=== PATIENT | female | born 1950 | race Caucasian/White ===

== ENCOUNTER 2016-11-14 09:46 | Emergency (ER) | payer OTHER, MEDICAID ==
[~2016-11-14] VITALS: Ht 152.4 cm; Wt 54.4 kg
[2016-11-14 12:34] VITALS: BP 134/42
== END 2016-11-14 12:50 | disposition home or self-care (01) ==
LOC: ED 09:46
DX: S16.1XXA Strain of muscle, fascia and tendon at neck level, initial encounter (principal); S61.401A Unspecified open wound of right hand, initial encounter; S20.212A Contusion of left front wall of thorax, initial encounter; R51 Headache; J45.909 Unspecified asthma, uncomplicated; M81.0 Age-related osteoporosis without current pathological fracture; F41.9 Anxiety disorder, unspecified; M79.7 Fibromyalgia; Z88.1 Allergy status to other antibiotic agents; Z88.5 Allergy status to narcotic agent; Z88.6 Allergy status to analgesic agent; Z88.8 Allergy status to other drugs, medicaments and biological substances; Z98.890 Other specified postprocedural states; V89.2XXA Person injured in unspecified motor-vehicle accident, traffic, initial encounter; Y93.89 Activity, other specified; Y92.89 Other specified places as the place of occurrence of the external cause; Y99.8 Other external cause status
CPT/HCPCS: 90715; J2270; Q0162

== ENCOUNTER 2017-05-16 08:57 | Emergency (ER) | payer OTHER ==
[~2017-05-16] VITALS: Ht 162.6 cm; Wt 59.4 kg
[2017-05-16 10:41] VITALS: BP 121/58
== END 2017-05-16 10:41 | disposition home or self-care (01) ==
LOC: ED 08:57
DX: J06.9 Acute upper respiratory infection, unspecified (principal); J45.909 Unspecified asthma, uncomplicated; M79.7 Fibromyalgia; M19.90 Unspecified osteoarthritis, unspecified site; M81.0 Age-related osteoporosis without current pathological fracture; Z88.1 Allergy status to other antibiotic agents; Z88.5 Allergy status to narcotic agent; Z88.8 Allergy status to other drugs, medicaments and biological substances; Z91.040 Latex allergy status
CPT/HCPCS: Q0092

== ENCOUNTER 2018-08-13 09:58 | Emergency (ER) | payer OTHER, MEDICAID ==
[~2018-08-13] VITALS: Ht 152.4 cm; Wt 53.5 kg
[2018-08-13 10:02] VITALS: Ht 152.4 cm; Wt 53.5 kg
[2018-08-13 10:40] LABS: PLATELET COUNT 208 x10^3mcL (130-400); RED CELL DISTRIBUTION WIDTH 13.8 % (11.5-14.5)
[2018-08-13 10:42] LABS: CALCIUM 8.9 mg/dL (8.5-10.1); CARBON DIOXIDE 20.1 mmol/L (21-32); CHLORIDE SERUM 110 mmol/L (98-107); CREATININE SERUM 0.6 mg/dL (0.6-1.0); GFR1 > 60 mL/min; GLUCOSE SERUM 102 mg/dL (74-106); SODIUM SERUM 142 mmol/L (136-145)
[2018-08-13 10:47] LABS: ALKALINE PHOSPHATASE 82 U/L (46-116); ALT/SGPT 33 U/L (14-59); AST/SGOT 12 U/L (15-37); BILIRUBIN TOTAL 0.73 mg/dL (0.20-1.00); TOTAL PROTEIN, SERUM 7.5 g/dL (6.4-8.2)
[2018-08-13 12:09] VITALS: BP 118/44
== END 2018-08-13 12:09 | disposition home or self-care (01) ==
LOC: ED 09:58
PROVIDERS: Emergency Medicine
DX: J45.909 Unspecified asthma, uncomplicated (principal); M79.7 Fibromyalgia; F41.9 Anxiety disorder, unspecified; F32.9 Major depressive disorder, single episode, unspecified; M19.90 Unspecified osteoarthritis, unspecified site; Z88.1 Allergy status to other antibiotic agents; Z88.5 Allergy status to narcotic agent; Z88.8 Allergy status to other drugs, medicaments and biological substances; Z91.040 Latex allergy status
CPT/HCPCS: 36415; 85378; Q0092

== ENCOUNTER 2018-12-22 09:22 | Emergency (ER) | payer OTHER ==
[~2018-12-22] VITALS: Ht 154.9 cm; Wt 54.4 kg
[2018-12-22 09:32] VITALS: Ht 154.9 cm; Wt 54.4 kg
[2018-12-22 10:59] LABS: CALCIUM 9.2 mg/dL (8.5-10.1); CARBON DIOXIDE 24.2 mmol/L (21-32); CHLORIDE SERUM 108 mmol/L (98-107); CREATININE SERUM 0.7 mg/dL (0.6-1.0); GFR1 > 60 mL/min; GLUCOSE SERUM 90 mg/dL (74-106); POTASSIUM SERUM 3.8 mmol/L (3.5-5.1); SODIUM SERUM 143 mmol/L (136-145)
[2018-12-22 11:03] LABS: ALBUMIN 3.8 g/dL (3.4-5.0); ALKALINE PHOSPHATASE 81 U/L (46-116); ALT/SGPT 23 U/L (14-59); AMYLASE 60 U/L (25-115); AST/SGOT 18 U/L (15-37); BILIRUBIN TOTAL 0.6 mg/dL (0.20-1.00); LIPASE 111 IU/L (73-393); TOTAL PROTEIN, SERUM 7.7 g/dL (6.4-8.2)
[2018-12-22 11:50] LABS: PLATELET COUNT 209 x10^3mcL (130-400); RED CELL DISTRIBUTION WIDTH 13.4 % (11.5-14.5)
[2018-12-22 13:02] VITALS: BP 127/52
== END 2018-12-22 13:02 | disposition home or self-care (01) ==
LOC: ED 09:22
PROVIDERS: Student in an Organized Health Care Education/Training Program
DX: M54.42 Lumbago with sciatica, left side (principal); M54.41 Lumbago with sciatica, right side; J45.909 Unspecified asthma, uncomplicated; M79.7 Fibromyalgia; M19.90 Unspecified osteoarthritis, unspecified site; F41.9 Anxiety disorder, unspecified; F32.9 Major depressive disorder, single episode, unspecified; Z90.89 Acquired absence of other organs; Z90.710 Acquired absence of both cervix and uterus; Z88.1 Allergy status to other antibiotic agents; Z88.5 Allergy status to narcotic agent; Z91.040 Latex allergy status
CPT/HCPCS: 87491; 87591; J1885; J2405; J7030; Q9967

== ENCOUNTER 2018-12-25 18:45 | Emergency (ER) | payer OTHER ==
[~2018-12-25] VITALS: Ht 154.9 cm; Wt 55.3 kg
[2018-12-25 19:09] VITALS: Ht 154.9 cm; Wt 55.3 kg
[2018-12-25 21:03] LABS: microscopic required? NO
[2018-12-25 21:09] LABS: UA SPECIFIC GRAVITY 1.015 (1.005-1.035); urine erythrocyte NEGATIVE (NEGATIVE)
[2018-12-25 21:10] LABS: PLATELET COUNT 219 x10^3mcL (130-400); RED CELL DISTRIBUTION WIDTH 13.6 % (11.5-14.5)
[2018-12-25 21:19] LABS: CALCIUM 8.9 mg/dL (8.5-10.1); CARBON DIOXIDE 21.6 mmol/L (21-32); CHLORIDE SERUM 106 mmol/L (98-107); CREATININE SERUM 0.7 mg/dL (0.6-1.0); GFR1 > 60 mL/min; GLUCOSE SERUM 121 mg/dL (74-106); POTASSIUM SERUM 3.6 mmol/L (3.5-5.1); SODIUM SERUM 141 mmol/L (136-145)
[2018-12-25 21:24] LABS: ALBUMIN 4.2 g/dL (3.4-5.0); ALKALINE PHOSPHATASE 93 U/L (46-116); ALT/SGPT 25 U/L (14-59); AST/SGOT 20 U/L (15-37); LIPASE 82 IU/L (73-393); TOTAL PROTEIN, SERUM 8.4 g/dL (6.4-8.2)
[2018-12-26 00:46] VITALS: BP 109/56
== END 2018-12-26 00:46 | disposition home or self-care (01) ==
LOC: ED 18:45
PROVIDERS: Emergency Medicine
DX: R10.30 Lower abdominal pain, unspecified (principal); R11.0 Nausea; J45.909 Unspecified asthma, uncomplicated; G89.29 Other chronic pain; M54.9 Dorsalgia, unspecified; F41.9 Anxiety disorder, unspecified; F32.9 Major depressive disorder, single episode, unspecified; Z90.89 Acquired absence of other organs; Z90.710 Acquired absence of both cervix and uterus; Z88.0 Allergy status to penicillin; Z88.1 Allergy status to other antibiotic agents; Z88.5 Allergy status to narcotic agent; Z91.040 Latex allergy status
CPT/HCPCS: J1885; J2270; J2405; Q9967

== ENCOUNTER 2019-03-21 12:17 | Emergency (ER) | payer OTHER ==
[~2019-03-21] VITALS: Ht 152.4 cm; Wt 56.2 kg
[2019-03-21 12:54] VITALS: Ht 152.4 cm; Wt 56.2 kg
[2019-03-21 15:11] VITALS: BP 125/70
== END 2019-03-21 15:11 | disposition home or self-care (01) ==
LOC: ED 12:17
DX: S63.501A Unspecified sprain of right wrist, initial encounter (principal); S40.011A Contusion of right shoulder, initial encounter; S50.01XA Contusion of right elbow, initial encounter; J45.909 Unspecified asthma, uncomplicated; Z88.0 Allergy status to penicillin; Z88.1 Allergy status to other antibiotic agents; Z88.5 Allergy status to narcotic agent; Z91.040 Latex allergy status; W01.0XXA Fall on same level from slipping, tripping and stumbling without subsequent striking against object, initial encounter; Y93.89 Activity, other specified; Y92.89 Other specified places as the place of occurrence of the external cause; Y99.8 Other external cause status
CPT/HCPCS: J1885